=== PATIENT | male | born 1965 | race Caucasian/White ===

== ENCOUNTER 2021-10-12 17:31 | Emergency (ER) | payer OTHER ==
[~2021-10-12] VITALS: Ht 170.2 cm; Wt 71.7 kg
[2021-10-12 17:42] VITALS: BP 149/98
[2021-10-12] MEDS ORDERED: CYCLOBENZAPRINE 10 MG TAB PO ONE (18:00)
[2021-10-12] MEDS ORDERED: KETOROLAC 30 MG/ML VIAL IM ONE (18:00)
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
[2021-10-12] MEDS ORDERED: NAPR-54 PO (18:39)
[2021-10-12] MEDS ORDERED: CYCL-711 PO (18:40)
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
== END 2021-10-12 18:51 | disposition home or self-care (01) ==
LOC: MED 17:31
DX: S16.1XXA Strain of muscle, fascia and tendon at neck level, initial encounter (principal); Z79.899 Other long term (current) drug therapy; V89.2XXA Person injured in unspecified motor-vehicle accident, traffic, initial encounter; Y93.89 Activity, other specified; Y92.89 Other specified places as the place of occurrence of the external cause; Y99.8 Other external cause status
CPT/HCPCS: 72050; 96372; 99283; J1885